=== PATIENT | female | born 1980 | race Caucasian/White ===

== ENCOUNTER 2020-05-28 12:30 | Emergency (ER) | payer OTHER ==
[~2020-05-28] VITALS: Ht 152.4 cm; Wt 84.5 kg
[2020-05-28 12:33] VITALS: TEMP 97.7
[2020-05-28 13:15] VITALS: BP 128/93; PULSE 94
== END 2020-05-28 13:22 | disposition home or self-care (01) ==
LOC: COL.ER 12:30
DX: T25.231A Burn of second degree of right toe(s) (nail), initial encounter (principal); T31.10 Burns involving 10-19% of body surface with 0% to 9% third degree burns; X10.2XXA Contact with fats and cooking oils, initial encounter

== ENCOUNTER 2021-12-28 14:04 | Emergency (ER) | payer SELFPAY ==
[~2021-12-28] VITALS: Ht 152.4 cm; Wt 110.0 kg
[2021-12-28 14:05] VITALS: TEMP 97.3
[2021-12-28 15:49] LABS: BASO # 0.1 K/mm3 (0.0-0.2); BASO % 0.6 % (0.0-2.0); EOS # 0.2 K/mm3 (0.0-0.7); EOS % 2.3 % (0.0-4.0); GRAN # 4.4 K/mm3 (1.4-6.5); GRAN % 51.7 % (42.2-75.2); HEMATOCRIT 37.6 % (37.0-47.0); HEMOGLOBIN 12.1 g/dl (12.5-16.0); LYMPH # 3.3 K/mm3 (1.2-3.4); LYMPH % 38.7 % (20.0-51.0); MEAN CELL VOLUME 82 fl (80.0-100.0); MEAN CORPUSCULAR HEMOGLOBIN 26 pg (27-31); MEAN CORPUSCULAR HGB CONC 32 g/dl (33.0-37.0); MEAN PLATELET VOLUME 9.4 fl (7.4-10.4); MONO # 0.6 K/mm3 (0.1-0.6); MONO % 6.5 % (1.7-9.3); PLATELET COUNT 449 K/mm3 (130-400); REDCELL DISTRIBUTION WIDTH-CV 15.4 % (11.5-14.5)
[2021-12-28 16:01] LABS: ALANINE AMINOTRANSFERASE 22 U/L (0-55); ALBUMIN 3.5 gm/dL (3.5-5.0); ALKALINE PHOSPHATASE 94 U/L (40-150); ANION GAP 11 mmol/L (7-16); AST,SGOT 15 U/L (5-34); BILIRUBIN,TOTAL 0.2 mg/dL (0.2-1.2); BLOOD UREA NITROGEN 19 mg/dL (7-19); CALCIUM 9.1 mg/dL (8.4-10.2); CARBON DIOXIDE 24 mmol/L (22-29); CHLORIDE 106 mmol/L (98-107); GLUCOSE 135 mg/dL (70-99); POTASSIUM 3.5 mmol/L (3.5-4.5); SODIUM 141 mmol/L (136-145); TOTAL PROTEIN 7.3 gm/dL (6.2-8.1)
[2021-12-28 16:07] LABS: TROPONIN-I < 0.010 ng/mL (0.00-0.033)
[2021-12-28] MEDS ORDERED: PERCOCET 325 MG1 TA2 PO ×2 (17:39)
[2021-12-28 18:17] VITALS: BP 150/83; PULSE 93
[2021-12-29] MEDS ORDERED: PERCOCET 325 MG1 TA2 PO (15:51)
== END 2021-12-28 18:17 | disposition home or self-care (01) ==
LOC: COL.ER 14:04
PROVIDERS: Personal Emergency Response Attendant
DX: S09.90XA Unspecified injury of head, initial encounter (principal); S30.0XXA Contusion of lower back and pelvis, initial encounter; R55 Syncope and collapse; R07.89 Other chest pain; Z88.6 Allergy status to analgesic agent; W22.8XXA Striking against or struck by other objects, initial encounter
CPT/HCPCS: J2405; J3010

== ENCOUNTER 2023-12-09 13:25 | Emergency (ER) | payer OTHER ==
[~2023-12-09] VITALS: Ht 152.4 cm; Wt 124.1 kg
[~2023-12-09 13:25] MED LIST: PERCOCET 325 MG1 TA2 PO
[2023-12-09 13:36] VITALS: BP 149/94; TEMP 98.2
[2023-12-09] MEDS ORDERED: CORTISPORIN OTI10 M2 OT (14:15)
[2023-12-09] MEDS ORDERED: AMOXICILLIN 8751 TAB PO (14:15)
[2023-12-09 14:19] VITALS: PULSE 90
== END 2023-12-09 14:19 | disposition home or self-care (01) ==
LOC: COL.ER 13:25
DX: H65.91 Unspecified nonsuppurative otitis media, right ear (principal)